=== PATIENT | male | born 1965 | race Hispanic/Latino ===

== ENCOUNTER 2018-01-15 20:02 | Observation (INO) | payer MEDICARE, OTHER ==
[~2018-01-15] VITALS: Ht 175.3 cm; Wt 98.6 kg
[~2018-01-15 20:02] MED LIST: ASPI-1012 PO
[2018-01-15] MEDS ORDERED: NITROGLYCERIN 0.4 MG SL TAB SL ONE (20:09)
[2018-01-15] MEDS ORDERED: MORPHINE SULFATE 2 MG/ML 1ML SYG ONE ×2 (20:20→22:44)
[2018-01-15] MEDS ORDERED: ONDANSETRON HCL 4 MG/2 ML VIAL ONE (20:20)
[2018-01-15 20:27] LABS: BASOPHILS % (AUTO) 1.1 % (0.0-5.0); EOSINOPHILS % (AUTO) 1.1 % (0.0-8.0); HEMATOCRIT 42.7 % (42-54); LYMPHOCYTES % (AUTO) 32.1 % (21.0-51.0); MEAN CORPUSCULAR HEMOGLOBIN 32.8 pg (27.0-33.0); MEAN CORPUSCULAR HGB CONC 34.8 g/dL (32.0-36.0); MEAN CORPUSCULAR VOLUME 94.4 fL (79-99); MONOCYTES % (AUTO) 8.3 % (3.0-13.0); NEUTROPHILS % (AUTO) 57.4 % (40.0-77.0); NUCLEATED RED BLOOD CELLS 0.1 % (0.0-0.19); PLATELET COUNT (AUTO) 256 K/uL (130-400); RED BLOOD CELL COUNT(AUTO) 4.53 MIL/uL (4.50-6.20); RED CELL DISTRIBUTION WIDTH 14.4 % (11.0-15.5)
[2018-01-15 20:38] LABS: CREATININE 1.4 mg/dL (0.5-1.5); POTASSIUM 4.4 mmol/L (3.5-5.1)
[2018-01-15 20:40] LABS: INR 0.96 (0.85-1.15); PARTIAL THROMBOPLASTIN TIME 29.3 SEC (26.3-35.5); PROTHROMBIN TIME 10.1 SEC (9.6-11.6)
[2018-01-15 20:48] LABS: ALBUMIN 3.8 g/dL (3.5-5.0); BILIRUBIN,TOTAL 0.2 mg/dL (0.2-1.0); TOTAL PROTEIN, SERUM 6.8 g/dL (6.0-8.3)
[2018-01-15] MEDS: ENOXAPARIN SODIUM 100 MG/1 ML SQ SCH (21:29)
[2018-01-15] MEDS ORDERED: ENOXAPARIN SODIUM 100 MG/1 ML SQ ONE (21:31)
[2018-01-15] MEDS ORDERED: ACETAMINOPHEN 325 MG TAB PO PRN (21:45)
[2018-01-15] MEDS ORDERED: NITROGLYCERIN 0.4 MG SL TAB SL PRN (21:45)
[2018-01-15] MEDS ORDERED: ONDANSETRON HCL 4 MG/2 ML VIAL IVP PRN (21:45)
[2018-01-15] MEDS ORDERED: CLONIDINE HCL 0.1 MG TABLET PO PRN (21:45)
[2018-01-16] MEDS ORDERED: MORPHINE SULFATE 2 MG/ML 1ML SYG ONE (01:16)
[2018-01-16 02:11] VITALS: BP 136/77
[2018-01-16] MEDS ORDERED: CLOP75TA14 PO (02:28)
[2018-01-16] MEDS: MORPHINE SULFATE 2 MG/ML 1ML SYG IVP PRN ×2 (03:39→08:19)
[2018-01-16 03:47] LABS: HEMATOCRIT 43.2 % (42-54); MEAN CORPUSCULAR HGB CONC 34.3 g/dL (32.0-36.0); MEAN CORPUSCULAR VOLUME 93.4 fL (79-99); NUCLEATED RED BLOOD CELLS 0.1 % (0.0-0.19); PLATELET COUNT (AUTO) 205 K/uL (130-400); RED BLOOD CELL COUNT(AUTO) 4.62 MIL/uL (4.50-6.20); RED CELL DISTRIBUTION WIDTH 14.1 % (11.0-15.5); WHITE BLOOD COUNT (AUTO) 6.9 K/uL (4.8-10.8)
[2018-01-16 04:00] VITALS: BP 129/75
[2018-01-16 04:16] LABS: CARBON DIOXIDE 27 mmol/L (21-32); CHLORIDE 107 mmol/L (101-111); CREATINE KINASE, TOTAL 166 U/L (21-232); CREATININE 1.1 mg/dL (0.5-1.5); GLOMERULAR FILTR. RATE CALC 75 mL/min (>60); GLUCOSE,RANDOM 94 mg/dL (70-105); MYOGLOBIN 83 ng/mL (10-92); SODIUM SERUM 142 mmol/L (136-145); TROPONIN I < 0.04 ng/mL (0.00-0.06); UREA NITROGEN, BLOOD 21 mg/dL (7-18)
[2018-01-16] MEDS ORDERED: COMPOUND PO MISCELLANEOUS 1 EACH MISC MISC PRN (06:45)
[2018-01-16] MEDS ORDERED: LIDOCAINE HCL 2% VISCOUS 30 ML, MAG HYDROX/AL HYDROX/SIMETH 30 ML, DICYCLOMINE HCL 20 MG PO PRN ×3 (06:45)
[2018-01-16] MEDS ORDERED: PHARMACY COMMUNICATION MISC PRN (06:45)
[2018-01-16 08:00] VITALS: BP 136/79
[2018-01-16] MEDS: ENOXAPARIN SODIUM 100 MG/1 ML SQ SCH (08:16)
[2018-01-16] MEDS ORDERED: PANTOPRAZOLE SODIUM 40 MG TABLET.DR PO SCH (09:00)
[2018-01-16] MEDS ORDERED: METOPROLOL TARTRATE 25 MG TAB PO SCH (09:00)
[2018-01-16] MEDS ORDERED: CLOPIDOGREL BISULFATE 75 MG TAB PO SCH (09:00)
[2018-01-16] MEDS ORDERED: ASPIRIN 81MG TAB.CHEW PO SCH (09:00)
[2018-01-16] MEDS ORDERED: ATORVASTATIN CALCIUM 40 MG TABLET PO SCH (21:00)
== END 2018-01-16 08:30 | disposition left against medical advice (07) ==
LOC: EDH 20:02 → EDHIP 21:15 → 2AH 01-16 02:05
PROVIDERS: ADMIT Internal Medicine; ATTEND Internal Medicine
DX: I25.110 Atherosclerotic heart disease of native coronary artery with unstable angina pectoris (principal); N17.9 Acute kidney failure, unspecified; E78.5 Hyperlipidemia, unspecified; G89.29 Other chronic pain; Z95.5 Presence of coronary angioplasty implant and graft
CPT/HCPCS: 36415; 71045; 80048; 80053; 82550; 83036; 83874; 84484; 85025; 85027; 85378; 85610; 85730; 93005; 96372; 96374; 96376; 99291; G0378; J1650; J2405

== ENCOUNTER 2018-02-12 18:06 | Observation (INO) | payer MEDICARE ==
[~2018-02-12] VITALS: Ht 170.2 cm; Wt 94.9 kg
[~2018-02-12 18:06] MED LIST changes: +CLOP75TA14 PO
[2018-02-12 18:27] LABS: BASOPHILS % (AUTO) 0.8 % (0.0-5.0); EOSINOPHILS % (AUTO) 1.1 % (0.0-8.0); HEMATOCRIT 42.4 % (42-54); LYMPHOCYTES % (AUTO) 27.6 % (21.0-51.0); MEAN CORPUSCULAR HEMOGLOBIN 33.8 pg (27.0-33.0); MEAN CORPUSCULAR HGB CONC 36.3 g/dL (32.0-36.0); MEAN CORPUSCULAR VOLUME 93.2 fL (79-99); MONOCYTES % (AUTO) 5.6 % (3.0-13.0); NEUTROPHILS % (AUTO) 64.9 % (40.0-77.0); NUCLEATED RED BLOOD CELLS 0.3 % (0.0-0.19); PLATELET COUNT (AUTO) 286 K/uL (130-400); RED BLOOD CELL COUNT(AUTO) 4.55 MIL/uL (4.50-6.20); RED CELL DISTRIBUTION WIDTH 13.6 % (11.0-15.5); WHITE BLOOD COUNT (AUTO) 7.7 K/uL (4.8-10.8)
[2018-02-12 18:38] LABS: CREATININE 1.1 mg/dL (0.5-1.5); POTASSIUM 4.4 mmol/L (3.5-5.1)
[2018-02-12 18:43] LABS: ALBUMIN 3.4 g/dL (3.5-5.0); BILIRUBIN,TOTAL 0.4 mg/dL (0.2-1.0); TOTAL PROTEIN, SERUM 6.6 g/dL (6.0-8.3)
[2018-02-12] MEDS ORDERED: ONDANSETRON HCL 4 MG/2 ML VIAL ONE (18:59)
[2018-02-12] MEDS ORDERED: MORPHINE SULFATE 4 MG/1ML SYG ONE ×2 (19:00→22:13)
[2018-02-12] MEDS ORDERED: ASPIRIN 325 MG TABLET ONE (21:13)
[2018-02-12] MEDS ORDERED: NITROGLYCERIN 1GM/1 INCH PACKET TD ONE (22:13)
[2018-02-12] MEDS ORDERED: MORPHINE SULFATE 2 MG/ML 1ML SYG IV PRN (23:00)
[2018-02-12] MEDS ORDERED: ONDANSETRON HCL MDV 20ML 2 MG/ML VIAL IV PRN (23:00)
[2018-02-12] MEDS ORDERED: ACETAMINOPHEN 325 MG TAB PO PRN (23:00)
[2018-02-12] MEDS ORDERED: LORAZEPAM 0.5 MG TABLET PO PRN (23:15)
[2018-02-13 00:18] VITALS: BP 117/65
[2018-02-13] MEDS ORDERED: MORPHINE SULFATE 4 MG/1ML SYG ONE (01:10)
[2018-02-13 03:47] VITALS: BP 119/68
[2018-02-13 04:57] LABS: BASOPHILS % (AUTO) 0.5 % (0.0-5.0); EOSINOPHILS % (AUTO) 1.5 % (0.0-8.0); HEMATOCRIT 40.2 % (42-54); LYMPHOCYTES % (AUTO) 27.9 % (21.0-51.0); MEAN CORPUSCULAR HGB CONC 34.8 g/dL (32.0-36.0); MONOCYTES % (AUTO) 7.5 % (3.0-13.0); NEUTROPHILS % (AUTO) 62.6 % (40.0-77.0); NUCLEATED RED BLOOD CELLS 0.1 % (0.0-0.19); PLATELET COUNT (AUTO) 211 K/uL (130-400); RED BLOOD CELL COUNT(AUTO) 4.37 MIL/uL (4.50-6.20); RED CELL DISTRIBUTION WIDTH 13.7 % (11.0-15.5); WHITE BLOOD COUNT (AUTO) 6.6 K/uL (4.8-10.8)
[2018-02-13 05:18] LABS: ALBUMIN 3.3 g/dL (3.5-5.0); BILIRUBIN,TOTAL 0.2 mg/dL (0.2-1.0); CREATININE 1.1 mg/dL (0.5-1.5); POTASSIUM 3.8 mmol/L (3.5-5.1); TOTAL PROTEIN, SERUM 6.3 g/dL (6.0-8.3)
[2018-02-13] MEDS ORDERED: NITROGLYCERIN 1GM/1 INCH PACKET TD ONE (06:17)
[2018-02-13 07:00] VITALS: BP 120/61
[2018-02-13] MEDS ORDERED: FAMOTIDINE/PF 20 MG/2 ML VIAL IV SCH (09:00)
[2018-02-13] MEDS ORDERED: CLOPIDOGREL BISULFATE 75 MG TAB PO SCH (09:00)
[2018-02-13] MEDS ORDERED: NITROGLYCERIN 0.2 MG/HR PATCH TD SCH (09:00)
[2018-02-13] MEDS ORDERED: ASPIRIN 325 MG TABLET PO SCH (09:00)
[2018-02-13] MEDS ORDERED: METOPROLOL TARTRATE 25 MG TAB PO SCH (09:00)
[2018-02-13] MEDS ORDERED: ENOXAPARIN SODIUM 30 MG/0.3 ML SQ SCH (09:00)
[2018-02-15] MEDS ORDERED: ENOXAPARIN SODIUM 30 MG/0.3 ML SQ SCH (21:00)
== END 2018-02-13 09:29 | disposition left against medical advice (07) ==
LOC: EDH 18:06 → EDHIP 20:18 → INTOOBSV 20:18 → 3DH 22:30 → 2DH 23:01
PROVIDERS: ADMIT Internal Medicine; ATTEND Internal Medicine
DX: I25.110 Atherosclerotic heart disease of native coronary artery with unstable angina pectoris (principal); E78.5 Hyperlipidemia, unspecified; I10 Essential (primary) hypertension; Z95.1 Presence of aortocoronary bypass graft; Z95.5 Presence of coronary angioplasty implant and graft
CPT/HCPCS: 36415 ×2; 71045; 80053 ×2; 84484 ×2; 85025 ×2; 93005 ×2; 99284; A4600; G0378 ×13; J2270 ×3; J2405; J3490

== ENCOUNTER 2018-04-07 09:15 | Inpatient (IN) | payer MEDICARE | END 2018-04-07 15:47 | disposition left against medical advice (07) | LOC: EDH 09:15 → EDHIP 13:00 ==

== ENCOUNTER 2018-08-14 10:11 | Observation (INO) | payer MEDICARE ==
[~2018-08-14] VITALS: Ht 175.3 cm; Wt 93.5 kg
[2018-08-14] MEDS ORDERED: ONDANSETRON HCL 4 MG/2 ML VIAL ONE (10:31)
[2018-08-14] MEDS ORDERED: MORPHINE SULFATE 4 MG/1ML SYG ONE ×2 (10:31→12:11)
[2018-08-14] MEDS ORDERED: NITROGLYCERIN 0.4 MG SL TAB SL ONE (10:31)
[2018-08-14 10:42] LABS: BASOPHILS % (AUTO) 0.7 % (0.0-5.0); EOSINOPHILS % (AUTO) 0.6 % (0.0-8.0); HEMATOCRIT 45.8 % (42-54); LYMPHOCYTES % (AUTO) 25.8 % (21.0-51.0); MEAN CORPUSCULAR HEMOGLOBIN 32.7 pg (27.0-33.0); MEAN CORPUSCULAR HGB CONC 35.5 g/dL (32.0-36.0); MONOCYTES % (AUTO) 6.4 % (3.0-13.0); NEUTROPHILS % (AUTO) 66.5 % (40.0-77.0); NUCLEATED RED BLOOD CELLS 0.1 % (0.0-0.19); PLATELET COUNT (AUTO) 235 K/uL (130-400); RED BLOOD CELL COUNT(AUTO) 4.98 MIL/uL (4.50-6.20); RED CELL DISTRIBUTION WIDTH 13.7 % (11.0-15.5); WHITE BLOOD COUNT (AUTO) 8.3 K/uL (4.8-10.8)
[2018-08-14 10:51] LABS: INR 0.95 (0.85-1.15); PARTIAL THROMBOPLASTIN TIME 33.8 SEC (26.3-35.5)
[2018-08-14 10:58] LABS: CREATININE 0.8 mg/dL (0.5-1.5); POTASSIUM 4.2 mmol/L (3.5-5.1)
[2018-08-14 11:04] LABS: ALBUMIN 4.1 g/dL (3.5-5.0); BILIRUBIN,TOTAL 0.4 mg/dL (0.2-1.0); TOTAL PROTEIN, SERUM 7.2 g/dL (6.0-8.3)
[2018-08-14 12:49] LABS: APPEARANCE,URINE Clear (CLEAR); BILIRUBIN,URINE Negative (NEGATIVE); COLOR,URINE Yellow (YELLOW); GLUCOSE, URINE (UA) Negative (NEGATIVE); KETONES,URINE Negative (NEGATIVE); LEUKOCYTE ESTERASE ,URINE Negative (NEGATIVE); NITRATE,URINE Negative (NEGATIVE); OCCULT BLOOD,URINE Negative (NEGATIVE); PH,URINE 5.5 (5.0-8.0); PROTEIN,URINE Negative (NEGATIVE); UROBILINOGEN,URINE 0.2 mg/dL (0.2-1.0)
[2018-08-14] MEDS ORDERED: HYDRALAZINE HCL 20 MG/ML VIAL IV PRN ×2 (13:45→14:30)
[2018-08-14] MEDS ORDERED: ACETAMINOPHEN 325 MG TAB PO PRN ×2 (14:30)
[2018-08-14] MEDS ORDERED: ONDANSETRON HCL 4 MG/2 ML VIAL IV PRN (14:30)
[2018-08-14] MEDS ORDERED: NITROGLYCERIN 0.4 MG SL TAB SL PRN (14:30)
[2018-08-14] MEDS ORDERED: MORPHINE SULFATE 2 MG/ML 1ML SYG IV PRN (14:30)
[2018-08-14] MEDS ORDERED: NITROGLYCERIN 1GM/1 INCH PACKET TD SCH (14:30)
[2018-08-14 14:56] LABS: HEMOGLOBIN A1C 5.3 % (4.0-6.0)
[2018-08-14] MEDS ORDERED: ACETAMINOPHEN 325 MG TAB ONE (14:58)
[2018-08-14] MEDS ORDERED: ENOXAPARIN SODIUM 40 MG/0.4 ML SYRINGE SQ ONE (14:58)
[2018-08-14] MEDS ORDERED: NITROGLYCERIN 1GM/1 INCH PACKET TD ONE (14:58)
[2018-08-14] MEDS ORDERED: MORPHINE SULFATE 2 MG/ML 1ML SYG ONE (16:13)
[2018-08-14] MEDS ORDERED: INSULIN R PO SS1 SQ SCH (16:30)
[2018-08-14 18:30] VITALS: BP 134/69
--- NOTE | 2018-08-14 19:00 | NUR ---
patient arrived to floor from ED at 1830; patient settled in and report given to night monitor nurse; Dr Pitts made aware of patient arrival as well.
[2018-08-14 19:56] VITALS: BP 122/75
[2018-08-14] MEDS ORDERED: FAMOTIDINE/PF 20 MG/2 ML VIAL IV SCH (21:00)
[2018-08-14] MEDS ORDERED: METOPROLOL TARTRATE 25 MG TAB PO SCH (21:00)
[2018-08-14] MEDS ORDERED: VALACYCLOVIR HCL 500 MG TABLET PO SCH (21:00)
[2018-08-15 00:32] VITALS: BP 127/53
[2018-08-15 02:49] LABS: CHOLESTEROL 204 mg/dL (<200); CREATINE KINASE, TOTAL 77 U/L (21-232); HDL CHOLESTEROL 143 mg/dL (29-71); LDL DIRECT 106 mg/dL (0-99); MYOGLOBIN 48 ng/mL (10-92); TRIGLYCERIDES 375 mg/dL (30-200); TROPONIN I < 0.04 ng/mL (0.00-0.06)
[2018-08-15 04:00] VITALS: BP 132/50
[2018-08-15] MEDS ORDERED: ENOXAPARIN SODIUM 40 MG/0.4 ML SYRINGE SQ SCH (09:00)
[2018-08-15] MEDS ORDERED: ASPIRIN 325 MG TABLET PO SCH (09:00)
[2018-08-17] MEDS ORDERED: VALACYCLOVIR HCL 500 MG TABLET PO SCH (21:00)
== END 2018-08-15 05:50 | disposition left against medical advice (07) ==
LOC: EDH 10:11 → EDHIP 13:00 → UNDOADMOB 13:00 → EDHIP 14:24 → 2AH 17:43
PROVIDERS: ADMIT Internal Medicine; ATTEND Internal Medicine
DX: R07.89 Other chest pain (principal); I25.2 Old myocardial infarction; E78.5 Hyperlipidemia, unspecified; I10 Essential (primary) hypertension; I25.10 Atherosclerotic heart disease of native coronary artery without angina pectoris; F17.200 Nicotine dependence, unspecified, uncomplicated; Z86.73 Personal history of transient ischemic attack (TIA), and cerebral infarction without residual deficits; Z95.5 Presence of coronary angioplasty implant and graft; Z90.89 Acquired absence of other organs; Z79.82 Long term (current) use of aspirin; Z79.899 Other long term (current) drug therapy
CPT/HCPCS: 36415 ×2; 71045; 80053; 80061; 81003; 82550 ×2; 83036; 83690; 83874; 84484 ×3; 85025; 85610; 85730; 93005 ×4; 96374; 96375; 99284; A4600; G0378 ×15; J1650; J2270 ×2; J2405; J3490

== ENCOUNTER 2018-10-10 11:23 | Inpatient (IN) | payer MEDICARE | END 2018-10-12 13:40 | disposition left against medical advice (07) | LOC: EDH 11:23 → EDHIP 16:30 → 4CH 19:48 | DX: I25.10 Atherosclerotic heart disease of native coronary artery without angina pectoris (principal); I69.354 Hemiplegia and hemiparesis following cerebral infarction affecting left non-dominant side; R07.9 Chest pain, unspecified; Z95.5 Presence of coronary angioplasty implant and graft; R61 Generalized hyperhidrosis; R11.0 Nausea; R06.02 Shortness of breath; I45.10 Unspecified right bundle-branch block ==

== ENCOUNTER 2018-12-24 09:14 | Observation (INO) | payer MEDICARE ==
[~2018-12-24] VITALS: Ht 175.3 cm; Wt 113.4 kg
[~2018-12-24 09:14] MED LIST changes: -ASPI-1012 PO; +ASPI-1197 PO; +ATOR20TA65 PO; -CLOP75TA14 PO; +METO25TA6 PO; +PANT40TA PO
[2018-12-24 09:32] LABS: BASOPHILS % (AUTO) 0.5 % (0.0-5.0); EOSINOPHILS % (AUTO) 0.9 % (0.0-8.0); HEMATOCRIT 45.2 % (42-54); LYMPHOCYTES % (AUTO) 27.1 % (21.0-51.0); MEAN CORPUSCULAR HEMOGLOBIN 32.8 pg (27.0-33.0); MEAN CORPUSCULAR HGB CONC 35.2 g/dL (32.0-36.0); MEAN CORPUSCULAR VOLUME 92.9 fL (79-99); MONOCYTES % (AUTO) 6.2 % (3.0-13.0); NEUTROPHILS % (AUTO) 65.3 % (40.0-77.0); PLATELET COUNT (AUTO) 227 K/uL (130-400); RED BLOOD CELL COUNT(AUTO) 4.86 MIL/uL (4.50-6.20); RED CELL DISTRIBUTION WIDTH 13.1 % (11.0-15.5); WHITE BLOOD COUNT (AUTO) 7.7 K/uL (4.8-10.8)
[2018-12-24 09:41] LABS: CREATININE 1.1 mg/dL (0.5-1.5); INR 0.98 (0.85-1.15); PARTIAL THROMBOPLASTIN TIME 30.2 SEC (26.3-35.5); POTASSIUM 3.7 mmol/L (3.5-5.1); PROTHROMBIN TIME 10.3 SEC (9.6-11.6)
[2018-12-24 09:45] LABS: ALBUMIN 3.9 g/dL (3.5-5.0); BILIRUBIN,TOTAL 0.5 mg/dL (0.2-1.0); TOTAL PROTEIN, SERUM 7.2 g/dL (6.0-8.3)
[2018-12-24 09:49] LABS: B-TYPE NATRIURETIC PEPTIDE 22 pg/mL (0-100)
[2018-12-24] MEDS ORDERED: MORPHINE SULFATE 2 MG/ML 1ML SYG ONE ×2 (10:18→15:33)
[2018-12-24] MEDS ORDERED: NITROGLYCERIN 50 MG/D5% WATER 1 BOT ONE (10:22)
[2018-12-24] MEDS ORDERED: LORAZEPAM 2 MG/ML 1 ML VIAL ONE (11:20)
[2018-12-24] MEDS ORDERED: MORPHINE SULFATE 4 MG/1ML SYG ONE (11:20)
[2018-12-24] MEDS ORDERED: METOPROLOL TARTRATE 25 MG TAB ONE (13:57)
[2018-12-24] MEDS ORDERED: NITROFURANTOIN MONOHYD/M-CRYST 100 MG CAPSULE PO ONE (13:57)
[2018-12-24] MEDS ORDERED: NITROGLYCERIN 1GM/1 INCH PACKET TD ONE (13:59)
[2018-12-24] MEDS ORDERED: ASPIRIN 325 MG TABLET PO SCH (14:49)
[2018-12-24] MEDS ORDERED: NITROGLYCERIN 1GM/1 INCH PACKET TD SCH (15:00)
[2018-12-24] MEDS ORDERED: MORPHINE SULFATE 2 MG/ML 1ML SYG IVP PRN (15:00)
[2018-12-24 18:22] LABS: CREATINE KINASE, TOTAL 137 U/L (21-232); MYOGLOBIN 51 ng/mL (10-92); TROPONIN I < 0.04 ng/mL (0.00-0.06)
[2018-12-24] MEDS ORDERED: ATORVASTATIN CALCIUM 40 MG TABLET PO SCH (21:00)
[2018-12-24] MEDS ORDERED: METOPROLOL TARTRATE 25 MG TAB PO SCH (21:00)
== END 2018-12-24 20:16 | disposition left against medical advice (07) ==
LOC: EDH 09:14 → EDHIP 13:30
PROVIDERS: ADMIT Internal Medicine; ATTEND Internal Medicine
DX: R07.89 Other chest pain (principal); I10 Essential (primary) hypertension; R94.31 Abnormal electrocardiogram [ECG] [EKG]; R00.1 Bradycardia, unspecified; I45.10 Unspecified right bundle-branch block; R11.2 Nausea with vomiting, unspecified; R61 Generalized hyperhidrosis; E78.5 Hyperlipidemia, unspecified; I69.344 Monoplegia of lower limb following cerebral infarction affecting left non-dominant side; I25.2 Old myocardial infarction; I25.10 Atherosclerotic heart disease of native coronary artery without angina pectoris; Z77.22 Contact with and (suspected) exposure to environmental tobacco smoke (acute) (chronic); Z87.74 Personal history of (corrected) congenital malformations of heart and circulatory system; Z95.5 Presence of coronary angioplasty implant and graft; Z90.49 Acquired absence of other specified parts of digestive tract; Z90.89 Acquired absence of other organs; Z79.82 Long term (current) use of aspirin; Z79.899 Other long term (current) drug therapy
CPT/HCPCS: 36415; 71045; 80053; 82550 ×2; 83874; 83880; 84484 ×2; 85025; 85610; 85730; 93005 ×2; 99291; G0378 ×7; J2060; J2270; J3490

== ENCOUNTER 2018-12-27 04:51 | Observation (INO) | payer MEDICARE ==
[~2018-12-27] VITALS: Ht 177.8 cm; Wt 97.1 kg
[2018-12-27] MEDS ORDERED: NITROGLYCERIN 0.4 MG SL TAB SL ONE (05:00)
[2018-12-27 05:19] LABS: BASOPHILS % (AUTO) 0.8 % (0.0-5.0); EOSINOPHILS % (AUTO) 1.5 % (0.0-8.0); HEMATOCRIT 41.8 % (42-54); LYMPHOCYTES % (AUTO) 36.2 % (21.0-51.0); MEAN CORPUSCULAR HEMOGLOBIN 33.3 pg (27.0-33.0); MEAN CORPUSCULAR HGB CONC 35.9 g/dL (32.0-36.0); MEAN CORPUSCULAR VOLUME 92.7 fL (79-99); MONOCYTES % (AUTO) 7.8 % (3.0-13.0); NEUTROPHILS % (AUTO) 53.7 % (40.0-77.0); NUCLEATED RED BLOOD CELLS 0.1 % (0.0-0.19); PLATELET COUNT (AUTO) 203 K/uL (130-400); RED BLOOD CELL COUNT(AUTO) 4.51 MIL/uL (4.50-6.20); WHITE BLOOD COUNT (AUTO) 6.2 K/uL (4.8-10.8)
[2018-12-27 05:31] LABS: CREATININE 0.9 mg/dL (0.5-1.5); POTASSIUM 4.7 mmol/L (3.5-5.1)
[2018-12-27 05:32] LABS: INR 1.01 (0.85-1.15); PARTIAL THROMBOPLASTIN TIME 30.3 SEC (26.3-35.5); PROTHROMBIN TIME 10.6 SEC (9.6-11.6)
[2018-12-27] MEDS ORDERED: ONDANSETRON HCL 4 MG/2 ML VIAL ONE (05:33)
[2018-12-27] MEDS ORDERED: MORPHINE SULFATE 2 MG/ML 1ML SYG ONE (05:34)
[2018-12-27 05:36] LABS: ALBUMIN 3.5 g/dL (3.5-5.0); BILIRUBIN,TOTAL 0.5 mg/dL (0.2-1.0); TOTAL PROTEIN, SERUM 6.9 g/dL (6.0-8.3)
[2018-12-27] MEDS ORDERED: NITROGLYCERIN 1GM/1 INCH PACKET TD SCH (06:15)
[2018-12-27] MEDS ORDERED: ONDANSETRON HCL 4 MG/2 ML VIAL IVP PRN (06:15)
[2018-12-27] MEDS ORDERED: ACETAMINOPHEN 325 MG TAB PO PRN (06:15)
[2018-12-27] MEDS ORDERED: NITROGLYCERIN 1GM/1 INCH PACKET TD ONE (06:49)
[2018-12-27] MEDS ORDERED: KETOROLAC TROMETHAMINE 15MG/ML IV PRN (08:15)
[2018-12-27] MEDS ORDERED: FAMOTIDINE 20MG TAB 20 MG TAB ONE (08:32)
[2018-12-27] MEDS ORDERED: ENOXAPARIN SODIUM 30 MG/0.3 ML SQ ONE (08:32)
[2018-12-27] MEDS ORDERED: FAMOTIDINE/PF 20 MG/2 ML VIAL IV SCH (09:00)
[2018-12-27] MEDS ORDERED: ASPIRIN 325 MG TABLET PO SCH (09:00)
[2018-12-27] MEDS ORDERED: ATORVASTATIN CALCIUM 20 MG TABLET PO SCH (09:00)
[2018-12-27] MEDS ORDERED: METOPROLOL TARTRATE 25 MG TAB PO SCH (09:00)
[2018-12-27] MEDS ORDERED: ENOXAPARIN SODIUM 30 MG/0.3 ML SQ SCH (09:00)
[2018-12-27 09:10] VITALS: BP 120/73
[2018-12-27 10:58] VITALS: BP 130/65
[2018-12-27 11:34] LABS: CREATINE KINASE, TOTAL 138 U/L (21-232); MYOGLOBIN 93 ng/mL (10-92); TROPONIN I < 0.04 ng/mL (0.00-0.06)
== END 2018-12-27 13:40 | disposition left against medical advice (07) ==
LOC: EDH 04:51 → EDHIP 06:07 → 2AH 09:10
PROVIDERS: ADMIT Internal Medicine; ATTEND Internal Medicine
DX: R07.89 Other chest pain (principal); I25.10 Atherosclerotic heart disease of native coronary artery without angina pectoris; I10 Essential (primary) hypertension; I45.10 Unspecified right bundle-branch block; R00.1 Bradycardia, unspecified; E78.5 Hyperlipidemia, unspecified; I25.2 Old myocardial infarction; I69.344 Monoplegia of lower limb following cerebral infarction affecting left non-dominant side; F17.210 Nicotine dependence, cigarettes, uncomplicated; Z53.29 Procedure and treatment not carried out because of patient's decision for other reasons; Z90.49 Acquired absence of other specified parts of digestive tract; Z90.89 Acquired absence of other organs; Z95.5 Presence of coronary angioplasty implant and graft; Z79.82 Long term (current) use of aspirin; Z79.899 Other long term (current) drug therapy
CPT/HCPCS: 36415; 71045; 80053; 82550 ×2; 83874; 84484 ×2; 85025; 85610; 85730; 93005; 96374; 99284; G0378 ×7; J1650; J1885; J2405

== ENCOUNTER 2019-01-19 20:44 | Observation (INO) | payer MEDICARE ==
[~2019-01-19 20:44] MED LIST changes: -METO25TA6 PO; -PANT40TA PO
[2019-01-19] MEDS ORDERED: NITROGLYCERIN 1GM/1 INCH PACKET TD ONE (21:03)
[2019-01-19 21:14] LABS: BASOPHILS % (AUTO) 1.5 % (0.0-5.0); EOSINOPHILS % (AUTO) 0.9 % (0.0-8.0); HEMATOCRIT 41.1 % (42-54); LYMPHOCYTES % (AUTO) 33.4 % (21.0-51.0); MEAN CORPUSCULAR HEMOGLOBIN 32.8 pg (27.0-33.0); MEAN CORPUSCULAR HGB CONC 35.4 g/dL (32.0-36.0); MEAN CORPUSCULAR VOLUME 92.8 fL (79-99); NEUTROPHILS % (AUTO) 57.2 % (40.0-77.0); NUCLEATED RED BLOOD CELLS 0.1 % (0.0-0.19); PLATELET COUNT (AUTO) 245 K/uL (130-400); RED BLOOD CELL COUNT(AUTO) 4.43 MIL/uL (4.50-6.20); RED CELL DISTRIBUTION WIDTH 13.2 % (11.0-15.5); WHITE BLOOD COUNT (AUTO) 7.4 K/uL (4.8-10.8)
[2019-01-19 21:29] LABS: INR 0.99 (0.85-1.15); PARTIAL THROMBOPLASTIN TIME 28.2 SEC (26.3-35.5); PROTHROMBIN TIME 10.4 SEC (9.6-11.6)
[2019-01-19 21:33] LABS: CREATININE 0.9 mg/dL (0.5-1.5); POTASSIUM 3.9 mmol/L (3.5-5.1)
[2019-01-19 21:37] LABS: ALBUMIN 3.5 g/dL (3.5-5.0); BILIRUBIN,TOTAL 0.3 mg/dL (0.2-1.0); TOTAL PROTEIN, SERUM 6.4 g/dL (6.0-8.3)
[2019-01-19] MEDS ORDERED: SODIUM CHLORIDE 0.9% 500ML 500 ML IV ONE (21:42)
[2019-01-19] MEDS ORDERED: METOPROLOL TARTRATE 1 MG/ML 5ML VIAL IV ONE (21:43)
[2019-01-19 21:52] LABS: APPEARANCE,URINE Clear (CLEAR); BILIRUBIN,URINE Negative (NEGATIVE); COLOR,URINE Yellow (YELLOW); GLUCOSE, URINE (UA) Negative (NEGATIVE); KETONES,URINE Negative (NEGATIVE); LEUKOCYTE ESTERASE ,URINE Negative (NEGATIVE); NITRATE,URINE Negative (NEGATIVE); OCCULT BLOOD,URINE Negative (NEGATIVE); PROTEIN,URINE Negative (NEGATIVE)
[2019-01-19 21:59] LABS: AMPHET/METH SCREEN,URINE NEGATIVE (NEGATIVE); BARBITURATE SCREEN, URINE NEGATIVE (NEGATIVE); BENZODIAZEPINES SCREEN,URINE NEGATIVE (NEGATIVE); CANNABINOID SCREEN,URINE NEGATIVE (NEGATIVE); COCAINE SCREEN,URINE NEGATIVE (NEGATIVE); OPIATE SCREEN,URINE NEGATIVE (NEGATIVE); PHENCYCLIDINE SCREEN,URINE NEGATIVE (NEGATIVE)
[2019-01-19 22:06] LABS: B-TYPE NATRIURETIC PEPTIDE 19 pg/mL (0-100)
[2019-01-19] MEDS ORDERED: MORPHINE SULFATE 2 MG/ML 1ML SYG IV PRN (22:15)
[2019-01-19] MEDS ORDERED: NITROGLYCERIN 0.4 MG SL TAB SL PRN (22:15)
[2019-01-19] MEDS ORDERED: LACTULOSE 20 GM/30 ML UDCUP PO PRN (22:15)
[2019-01-19] MEDS ORDERED: ACETAMINOPHEN 325 MG TAB PO PRN ×2 (22:15)
[2019-01-19] MEDS ORDERED: ONDANSETRON HCL 4 MG/2 ML VIAL IV PRN (22:15)
[2019-01-19] MEDS ORDERED: MORPHINE SULFATE 2 MG/ML 1ML SYG ONE (22:27)
[2019-01-19 23:12] LABS: CHOLESTEROL 139 mg/dL (<200); HDL CHOLESTEROL 102 mg/dL (29-71); LDL DIRECT 75 mg/dL (0-99); TRIGLYCERIDES 277 mg/dL (30-200)
[2019-01-20] MEDS ORDERED: MORPHINE SULFATE 2 MG/ML 1ML SYG ONE ×2 (02:33→06:32)
[2019-01-20 05:03] LABS: BASOPHILS % (AUTO) 0.6 % (0.0-5.0); HEMATOCRIT 40.6 % (42-54); LYMPHOCYTES % (AUTO) 33.8 % (21.0-51.0); MEAN CORPUSCULAR HEMOGLOBIN 32.6 pg (27.0-33.0); MEAN CORPUSCULAR HGB CONC 34.5 g/dL (32.0-36.0); MEAN CORPUSCULAR VOLUME 94.4 fL (79-99); MONOCYTES % (AUTO) 7.4 % (3.0-13.0); NEUTROPHILS % (AUTO) 57.2 % (40.0-77.0); PLATELET COUNT (AUTO) 226 K/uL (130-400); RED CELL DISTRIBUTION WIDTH 13.6 % (11.0-15.5); WHITE BLOOD COUNT (AUTO) 6.3 K/uL (4.8-10.8)
[2019-01-20 05:20] LABS: CREATININE 0.8 mg/dL (0.5-1.5); POTASSIUM 4.2 mmol/L (3.5-5.1)
[2019-01-20] MEDS ORDERED: NITROGLYCERIN 1GM/1 INCH PACKET TD SCH (06:00)
[2019-01-20] MEDS ORDERED: ASPIRIN 325 MG TABLET PO SCH (09:00)
[2019-01-20] MEDS ORDERED: FAMOTIDINE 20MG TAB 20 MG TAB PO SCH (09:00)
[2019-01-20] MEDS ORDERED: METOPROLOL TARTRATE 25 MG TAB PO SCH (09:00)
[2019-01-20] MEDS ORDERED: ENOXAPARIN SODIUM 40 MG/0.4 ML SYRINGE SQ SCH (09:00)
[2019-01-20] MEDS ORDERED: ASPIRIN 325 MG TABLET ONE (10:38)
[2019-01-20] MEDS ORDERED: METOPROLOL TARTRATE 25 MG TAB ONE (10:38)
[2019-01-20] MEDS ORDERED: ENOXAPARIN SODIUM 40 MG/0.4 ML SYRINGE SQ ONE (10:38)
[2019-01-20] MEDS ORDERED: FAMOTIDINE 20MG TAB 20 MG TAB ONE (10:38)
[2019-01-20] MEDS ORDERED: ATORVASTATIN CALCIUM 20 MG TABLET PO SCH (21:00)
== END 2019-01-20 11:13 | disposition left against medical advice (07) ==
LOC: EDH 20:44 → EDHIP 22:07
PROVIDERS: ADMIT Internal Medicine; ATTEND Internal Medicine
DX: R07.89 Other chest pain (principal); I10 Essential (primary) hypertension; E78.5 Hyperlipidemia, unspecified; I25.10 Atherosclerotic heart disease of native coronary artery without angina pectoris; I25.2 Old myocardial infarction; I45.10 Unspecified right bundle-branch block; Z86.73 Personal history of transient ischemic attack (TIA), and cerebral infarction without residual deficits; Z77.22 Contact with and (suspected) exposure to environmental tobacco smoke (acute) (chronic); Z95.1 Presence of aortocoronary bypass graft; Z90.49 Acquired absence of other specified parts of digestive tract; Z90.89 Acquired absence of other organs; Z79.82 Long term (current) use of aspirin; Z79.899 Other long term (current) drug therapy
CPT/HCPCS: 36415 ×2; 71045; 80048; 80053; 80061; 80305; 81003; 82550; 83880; 84484 ×3; 85025 ×2; 85610; 85730; 93005 ×2; 99291; G0378 ×13; J1650; J3490; J7040

== ENCOUNTER 2019-03-19 08:21 | Emergency (ER) | payer MEDICARE, OTHER ==
[2019-03-19] MEDS ORDERED: ASPIRIN 325 MG TABLET ONE (08:35)
[2019-03-19 08:46] LABS: BASOPHILS % (AUTO) 0.6 % (0.0-5.0); EOSINOPHILS % (AUTO) 1.2 % (0.0-8.0); HEMATOCRIT 44.4 % (42-54); LYMPHOCYTES % (AUTO) 25.2 % (21.0-51.0); MEAN CORPUSCULAR HEMOGLOBIN 31.6 pg (27.0-33.0); MEAN CORPUSCULAR HGB CONC 34.5 g/dL (32.0-36.0); MEAN CORPUSCULAR VOLUME 91.7 fL (79-99); MONOCYTES % (AUTO) 5.2 % (3.0-13.0); NEUTROPHILS % (AUTO) 67.3 % (40.0-77.0); PLATELET COUNT (AUTO) 289 K/uL (130-400); RED BLOOD CELL COUNT(AUTO) 4.84 MIL/uL (4.50-6.20); RED CELL DISTRIBUTION WIDTH 12.3 % (11.0-15.5); WHITE BLOOD COUNT (AUTO) 6.6 K/uL (4.8-10.8)
[2019-03-19 08:56] LABS: POTASSIUM 4.5 mmol/L (3.5-5.1)
[2019-03-19 08:57] LABS: INR 0.99 (0.85-1.15); PARTIAL THROMBOPLASTIN TIME 29.4 SEC (26.3-35.5); PROTHROMBIN TIME 10.4 SEC (9.6-11.6)
[2019-03-19 09:01] LABS: ALBUMIN 3.7 g/dL (3.5-5.0); BILIRUBIN,TOTAL 0.5 mg/dL (0.2-1.0); TOTAL PROTEIN, SERUM 7.1 g/dL (6.0-8.3)
== END 2019-03-19 10:16 | disposition left against medical advice (07) ==
LOC: EDH 08:21
DX: R07.89 Other chest pain (principal); Z76.5 Malingerer [conscious simulation]; R51 Headache; E78.5 Hyperlipidemia, unspecified; I10 Essential (primary) hypertension; I25.2 Old myocardial infarction; I25.810 Atherosclerosis of coronary artery bypass graft(s) without angina pectoris; Z86.73 Personal history of transient ischemic attack (TIA), and cerebral infarction without residual deficits; Z72.0 Tobacco use
CPT/HCPCS: 36415; 71045; 80053; 82550; 84484; 85025; 85610; 85730; 93005

== ENCOUNTER 2019-04-15 08:41 | Emergency (ER) | payer OTHER ==
[2019-04-15] MEDS ORDERED: NITROGLYCERIN 1GM/1 INCH PACKET TD ONE (08:42)
[2019-04-15 09:20] LABS: BASOPHILS % (AUTO) 0.4 % (0.0-5.0); EOSINOPHILS % (AUTO) 0.8 % (0.0-8.0); HEMATOCRIT 43.3 % (42-54); LYMPHOCYTES % (AUTO) 23.1 % (21.0-51.0); MEAN CORPUSCULAR HEMOGLOBIN 31.9 pg (27.0-33.0); MEAN CORPUSCULAR HGB CONC 35.3 g/dL (32.0-36.0); MEAN CORPUSCULAR VOLUME 90.2 fL (79-99); MONOCYTES % (AUTO) 6.6 % (3.0-13.0); NEUTROPHILS % (AUTO) 68.8 % (40.0-77.0); PLATELET COUNT (AUTO) 242 K/uL (130-400); RED CELL DISTRIBUTION WIDTH 12.4 % (11.0-15.5); WHITE BLOOD COUNT (AUTO) 7.4 K/uL (4.8-10.8)
[2019-04-15 09:30] LABS: CREATININE 0.9 mg/dL (0.5-1.5); POTASSIUM 4.3 mmol/L (3.5-5.1)
[2019-04-15 09:36] LABS: ALBUMIN 3.6 g/dL (3.5-5.0); BILIRUBIN,TOTAL 0.4 mg/dL (0.2-1.0); INR 0.99 (0.85-1.15); PARTIAL THROMBOPLASTIN TIME 30.6 SEC (26.3-35.5); PROTHROMBIN TIME 10.4 SEC (9.6-11.6); TOTAL PROTEIN, SERUM 6.8 g/dL (6.0-8.3)
== END 2019-04-15 11:15 | disposition left against medical advice (07) ==
LOC: EDH 08:41
DX: R07.89 Other chest pain (principal); R00.2 Palpitations; R06.02 Shortness of breath; I25.10 Atherosclerotic heart disease of native coronary artery without angina pectoris; E78.5 Hyperlipidemia, unspecified; I10 Essential (primary) hypertension; I25.2 Old myocardial infarction
CPT/HCPCS: 36415; 71045; 80053; 82550; 84484; 85025; 85610; 85730; 93005

== ENCOUNTER 2022-05-26 10:17 | Observation (INO) | payer OTHER ==
[~2022-05-26] VITALS: Ht 177.8 cm; Wt 95.2 kg
[~2022-05-26 10:17] MED LIST changes: +ARIP15TA18 PO; +ASPI-1005 PO; +ATOR10TA69 PO; +CLOP75TA32 PO
[2022-05-26] MEDS ORDERED: NITROGLYCERIN 0.4 MG SL TAB SL ONE (10:27)
[2022-05-26] MEDS ORDERED: ASPIRIN 81MG CHEW TAB ONE (10:28)
[2022-05-26 10:47] LABS: BASOPHILS % (AUTO) 0.4 % (0.0-5.0); EOSINOPHILS % (AUTO) 0.9 % (0.0-8.0); HEMATOCRIT 40.9 % (42-54); LYMPHOCYTES % (AUTO) 21.9 % (21.0-51.0); MEAN CORPUSCULAR HEMOGLOBIN 31.4 pg (27.0-33.0); MEAN CORPUSCULAR VOLUME 89.9 fL (79-99); MONOCYTES % (AUTO) 5.8 % (3.0-13.0); NEUTROPHILS % (AUTO) 70.6 % (40.0-77.0); PLATELET COUNT (AUTO) 233 K/uL (130-400); RED BLOOD CELL COUNT(AUTO) 4.55 MIL/uL (4.50-6.20); RED CELL DISTRIBUTION WIDTH 12.7 % (11.0-15.5); WHITE BLOOD COUNT (AUTO) 7.6 K/uL (4.8-10.8)
[2022-05-26] MEDS ORDERED: PANTOPRAZOLE 40 MG/VIAL IVP ONE (11:00)
[2022-05-26 11:01] LABS: ALBUMIN 3.6 g/dL (3.5-5.0); CREATININE 0.8 mg/dL (0.5-1.5); POTASSIUM 3.9 mmol/L (3.5-5.1); TOTAL PROTEIN, SERUM 6.8 g/dL (6.0-8.3)
[2022-05-26] MEDS ORDERED: MAG/ALUM/SIMETH 30 ML UDCUP PO ONE ×2 (11:30→22:30)
[2022-05-26] MEDS ORDERED: ONDANSETRON 4MG INJ IVP ONE (11:30)
[2022-05-26] MEDS ORDERED: LIDOCAINE HCL 2% VISCOUS 15 ML UDCUP PO ONE ×2 (11:30→22:30)
[2022-05-26] MEDS ORDERED: MORPHINE 2 MG SYG IVP ONE (11:30)
[2022-05-26 11:46] LABS: APPEARANCE,URINE CLEAR (CLEAR); BILIRUBIN,URINE NEGATIVE (NEGATIVE); COLOR,URINE LIGHT-YELLOW (YELLOW); GLUCOSE, URINE (UA) NEGATIVE (NEGATIVE); KETONES,URINE NEGATIVE (NEGATIVE); LEUKOCYTE ESTERASE ,URINE NEGATIVE Leu/uL (NEGATIVE); NITRATE,URINE NEGATIVE (NEGATIVE); OCCULT BLOOD,URINE NEGATIVE (NEGATIVE); PH,URINE 6.5 (5.0-8.0); PROTEIN,URINE NEGATIVE (NEGATIVE); UROBILINOGEN,URINE 0.2 mg/dL (0.2-1.0)
[2022-05-26 11:49] LABS: AMPHET/METH SCREEN,URINE NEGATIVE (NEGATIVE); BARBITURATE SCREEN, URINE NEGATIVE (NEGATIVE); BENZODIAZEPINES SCREEN,URINE NEGATIVE (NEGATIVE); CANNABINOID SCREEN,URINE NEGATIVE (NEGATIVE); COCAINE SCREEN,URINE NEGATIVE (NEGATIVE); OPIATE SCREEN,URINE NEGATIVE (NEGATIVE); PHENCYCLIDINE SCREEN,URINE NEGATIVE (NEGATIVE)
[2022-05-26 11:53] LABS: BACTERIA,URINE RARE /HPF (None Seen); MUCUS,URINE RARE LPF (None Seen); WBC,URINE 0-1 /HPF (0-1)
[2022-05-26] MEDS ORDERED: ZOLPIDEM TARTRATE 5 MG TAB PO PRN (14:00)
[2022-05-26] MEDS ORDERED: ACETAMINOPHEN WITH CODEINE 1 TAB TAB PO PRN (14:00)
[2022-05-26] MEDS ORDERED: MAG/ALUM/SIMETH 30 ML UDCUP PO PRN (14:00)
[2022-05-26] MEDS ORDERED: ACETAMINOPHEN 325 MG TAB PO PRN ×2 (14:00)
[2022-05-26] MEDS ORDERED: ONDANSETRON 4MG INJ IV PRN (14:00)
[2022-05-26] MEDS ORDERED: LACTULOSE 20 GM/30 ML UDCUP PO PRN (14:00)
[2022-05-26 14:42] LABS: THYROID STIMULATING HORMONE 2.95 uIU/mL (0.36-3.74)
[2022-05-26] MEDS: MORPHINE 2 MG SYG IV PRN (17:39)
[2022-05-26 20:00] VITALS: BP 144/67
[2022-05-26] MEDS: METOPROLOL TARTRATE 25 MG TAB PO SCH (20:50)
[2022-05-26] MEDS: FAMOTIDINE 20MG TAB PO SCH (20:50)
[2022-05-26] MEDS ORDERED: ATORVASTATIN 40 MG TABLET PO SCH (21:00)
[2022-05-26] MEDS: NITROGLYCERIN 0.4 MG SL TAB SL PRN ×3 (22:08→22:18)
[2022-05-26] MEDS ORDERED: DICYCLOMINE HCL 10 MG/5 ML ML PO ONE (22:30)
[2022-05-26] MEDS ORDERED: HYDROCODONE/ACETAMINOPHEN 5/325 MG TAB ONE (23:05)
[2022-05-27] VITALS: BP 133/73
[2022-05-27] MEDS: MORPHINE 2 MG SYG IV PRN (00:41)
[2022-05-27 04:00] VITALS: BP 129/64
[2022-05-27 06:40] LABS: BASOPHILS % (AUTO) 0.5 % (0.0-5.0); EOSINOPHILS % (AUTO) 1.8 % (0.0-8.0); HEMATOCRIT 39.4 % (42-54); LYMPHOCYTES % (AUTO) 29.5 % (21.0-51.0); MEAN CORPUSCULAR HEMOGLOBIN 31.1 pg (27.0-33.0); MEAN CORPUSCULAR HGB CONC 34.8 g/dL (32.0-36.0); MEAN CORPUSCULAR VOLUME 89.5 fL (79-99); MONOCYTES % (AUTO) 6.5 % (3.0-13.0); NEUTROPHILS % (AUTO) 61.4 % (40.0-77.0); PLATELET COUNT (AUTO) 240 K/uL (130-400); RED CELL DISTRIBUTION WIDTH 12.6 % (11.0-15.5); WHITE BLOOD COUNT (AUTO) 6.2 K/uL (4.8-10.8)
[2022-05-27 07:10] LABS: ALBUMIN 3.3 g/dL (3.5-5.0); CREATININE 0.9 mg/dL (0.5-1.5); POTASSIUM 3.8 mmol/L (3.5-5.1); TOTAL PROTEIN, SERUM 6.4 g/dL (6.0-8.3)
[2022-05-27 07:54] VITALS: BP 130/77
[2022-05-27] MEDS: METOPROLOL TARTRATE 25 MG TAB PO SCH (08:50)
[2022-05-27] MEDS: FAMOTIDINE 20MG TAB PO SCH (08:50)
[2022-05-27] MEDS: NITROGLYCERIN 0.4 MG SL TAB SL PRN (08:51)
[2022-05-27] MEDS ORDERED: ASPIRIN 81 MG EC TAB PO SCH (09:00)
[2022-05-27] MEDS ORDERED: ENOXAPARIN SODIUM 30 MG/0.3 ML SQ SCH (09:00)
[2022-05-27] MEDS ORDERED: ONDA-104 PO (11:21)
[2022-05-27 12:00] VITALS: BP 128/67
== END 2022-05-27 15:40 | disposition home or self-care (01) ==
LOC: EDH 10:17 → MERGE 13:56 → EDHIP 13:56 → 3CH 16:49
PROVIDERS: ADMIT Hospitalist; ATTEND Hospitalist
DX: I25.110 Atherosclerotic heart disease of native coronary artery with unstable angina pectoris (principal); I10 Essential (primary) hypertension; I24.9 Acute ischemic heart disease, unspecified; R07.89 Other chest pain; E78.2 Mixed hyperlipidemia; I25.2 Old myocardial infarction; I45.10 Unspecified right bundle-branch block; I69.354 Hemiplegia and hemiparesis following cerebral infarction affecting left non-dominant side; K59.00 Constipation, unspecified; F31.9 Bipolar disorder, unspecified; F43.10 Post-traumatic stress disorder, unspecified; F60.2 Antisocial personality disorder; G47.00 Insomnia, unspecified; Z86.74 Personal history of sudden cardiac arrest; Z91.51 Personal history of suicidal behavior; Z95.1 Presence of aortocoronary bypass graft; Z95.5 Presence of coronary angioplasty implant and graft; Z79.82 Long term (current) use of aspirin; Z79.899 Other long term (current) drug therapy; Z98.890 Other specified postprocedural states; Z90.49 Acquired absence of other specified parts of digestive tract
CPT/HCPCS: 96374; 96376 ×2; 96375; 99285; 84443; 82550 ×3; 83874 ×3; 84484 ×5; 80061; 80053 ×2; 80305; 85025 ×2; 81001; 36415 ×2; 71045; 93005 ×2; 96372; 93306; 93356; G0378 ×25; J2405; C9113; J1650

== ENCOUNTER 2022-09-18 23:00 | Emergency (ER) | payer OTHER ==
[~2022-09-18] VITALS: Ht 177.8 cm; Wt 86.2 kg
[~2022-09-18 23:00] MED LIST changes: -ASPI-1197 PO; -ATOR20TA65 PO; +ONDA-104 PO
[2022-09-19 01:17] LABS: BASOPHILS % (AUTO) 0.3 % (0.0-5.0); EOSINOPHILS % (AUTO) 0.5 % (0.0-8.0); LYMPHOCYTES % (AUTO) 18.3 % (21.0-51.0); MEAN CORPUSCULAR HEMOGLOBIN 30.4 pg (27.0-33.0); MEAN CORPUSCULAR HGB CONC 34.1 g/dL (32.0-36.0); MEAN CORPUSCULAR VOLUME 89.2 fL (79-99); MONOCYTES % (AUTO) 5.4 % (3.0-13.0); NEUTROPHILS % (AUTO) 75.2 % (40.0-77.0); PLATELET COUNT (AUTO) 315 K/uL (130-400); RED BLOOD CELL COUNT(AUTO) 4.93 MIL/uL (4.50-6.20); RED CELL DISTRIBUTION WIDTH 13.2 % (11.0-15.5); WHITE BLOOD COUNT (AUTO) 9.5 K/uL (4.8-10.8)
[2022-09-19 01:24] LABS: POTASSIUM 3.6 mmol/L (3.5-5.1)
[2022-09-19 01:28] LABS: ALBUMIN 3.8 g/dL (3.5-5.0); TOTAL PROTEIN, SERUM 7.9 g/dL (6.0-8.3)
[2022-09-19] MEDS ORDERED: NITROGLYCERIN 50MG/D5W 250ML 250 BOT IV PRN (02:00)
[2022-09-19] MEDS ORDERED: ASPIRIN 81MG CHEW TAB PO ONE (02:00)
[2022-09-19 02:57] LABS: APPEARANCE,URINE CLEAR (CLEAR); BILIRUBIN,URINE NEGATIVE (NEGATIVE); COLOR,URINE YELLOW (YELLOW); GLUCOSE, URINE (UA) NEGATIVE (NEGATIVE); KETONES,URINE NEGATIVE (NEGATIVE); LEUKOCYTE ESTERASE ,URINE NEGATIVE Leu/uL (NEGATIVE); NITRATE,URINE NEGATIVE (NEGATIVE); OCCULT BLOOD,URINE NEGATIVE (NEGATIVE); PH,URINE 5.5 (5.0-8.0); PROTEIN,URINE 30 mg/dL (NEGATIVE); UROBILINOGEN,URINE 0.2 mg/dL (0.2-1.0)
[2022-09-19 04:24] VITALS: BP 112/65; PULSE 65; RESP 17; O2SAT 99
== END 2022-09-19 04:28 | disposition left against medical advice (07) ==
LOC: EDH 23:00
DX: I24.9 Acute ischemic heart disease, unspecified (principal); I10 Essential (primary) hypertension; Z79.82 Long term (current) use of aspirin; Z79.899 Other long term (current) drug therapy; Z90.49 Acquired absence of other specified parts of digestive tract; Z98.890 Other specified postprocedural states
CPT/HCPCS: 36415; 71045; 72125; 80053; 81003; 82550; 83880; 84484; 85025; 93005

== ENCOUNTER → 2022-10-26 | Emergency (ER) | payer OTHER ==
[~2022-10-26] VITALS: Ht 177.8 cm; Wt 87.5 kg
[2022-10-26 17:14] VITALS: BP 156/69; PULSE 63; RESP 18
[2022-10-26 17:27] LABS: HEMATOCRIT 40.3 % (42-54); MEAN CORPUSCULAR HEMOGLOBIN 30.6 pg (27.0-33.0); MEAN CORPUSCULAR VOLUME 87.4 fL (79-99); RED BLOOD CELL COUNT(AUTO) 4.61 MIL/uL (4.50-6.20); WHITE BLOOD COUNT (AUTO) 6.9 K/uL (4.8-10.8)
[2022-10-26 17:45] LABS: CREATININE 0.9 mg/dL (0.5-1.5); POTASSIUM 3.4 mmol/L (3.5-5.1)
[2022-10-26 17:49] LABS: ALBUMIN 3.8 g/dL (3.5-5.0); BILIRUBIN,TOTAL 0.3 mg/dL (0.2-1.0); TOTAL PROTEIN, SERUM 7.4 g/dL (6.0-8.3)
== END ==
LOC: EDH 17:10
DX: R07.89 Other chest pain (principal); Z53.21 Procedure and treatment not carried out due to patient leaving prior to being seen by health care provider
CPT/HCPCS: 36415; 80053; 84484; 85027; 93005; 99281